=== PATIENT | female | born 1945 ===

== ENCOUNTER 2019-03-20 10:37 | Inpatient (IN) | payer MEDICARE ==
[2019-03-20] MEDS: OXYCODONE HCL/APAP 5MG/325MG TABLET PO PRN ×2 (15:06→20:46)
[2019-03-20] MEDS: DULOXETINE HCL 30 MG CAPSULE.DR PO SCH (21:20)
[2019-03-20] MEDS: CELECOXIB 100 MG CAPSULE PO SCH (21:21)
[2019-03-20] MEDS: RIVAROXABAN 20 MG TABLET PO SCH (21:21)
[2019-03-20] MEDS: CARVEDILOL 12.5 MG TABLET PO SCH (21:21)
[2019-03-21] MEDS: OXYCODONE HCL/APAP 5MG/325MG TABLET PO PRN ×3 (05:05→20:33)
--- NOTE | 2019-03-21 08:34 | History & Physical ---
History of Present Illness - Date Date of Service for History & Physical: 03/20/19 - History of Present Illness Admitting Diagnosis: Multiple rehab services post bilateral TKAs History of Present Illness: 74 yo female with bilateral total knee replacements completed at [facility]. Pt requested bilateral replacements and was denied by first ortho but was accepted by Dr Cheema and had both knees completed 03/17/19. PMH [place], Afib, HTN, OA, and depression. 03/20/19 -Pt in no distress, reports adequate pain control. Will continue percocet 5/325mg 1-2 q 6 hrs with ultram PRN for breakthrough pain. Home meds continued. PT/OT ordered and will eval pt for POC. Pt arrived with bilateral ice cooler pack and tolerating well. Pt in no acute distress, lungs CTA, heart rate irreg but normal rate. Pulses +2 PT and DP, +1 pitting edema. JEFFERSON hose to mid thigh both legs. Surgical dressings C/D/I, scant amt of bleed through noted. Pt has decreased ROM but able to move both legs with minimal assistance. Pt POC is to complete PT [facility] and then d/c to [facility] for a few weeks post op. PCP Surgeon Deni KOTHARI General - Cognitive Patterns Speech: Normal Thought Process: Intact Thought Content: Normal Orientation: Oriented x3 Brief Interview for Mental Status Score: 15 - Communication Preferred Language?: [place] [employer] Required: No Level of Education: High School Preferred Method of Learning: Seeing, Doing Comprehension Ability: No Impairment Able to Read: Yes Able to Write: Yes Select best description of speech pattern: Clear Speech Ability to express ideas and wants: Understood Understanding verbal content: Understands - Mood and Behavior Patterns Appearance: Well Groomed Mood: Normal Attitude: Cooperative Motor Activity: Calm Affect: Appropriate Hallucinations: Denies - Patient Health Questionnaire (PHQ-9) Little interest or pleasure in doing things frequency: Never or 1 day Feeling down, depressed, or hopeless frequency: Never or 1 day Trouble falling/staying asleep or sleeping to much frequency: Never or 1 day Feeling tired or having little energy frequency: Never or 1 day Poor appetite or overeating frequency: 12-14 days Feeling bad about yourself frequency: Never or 1 day Trouble concentrating on things frequency: Never or 1 day Moving/Speaking slowly or fidgety/restless frequency: Never or 1 day Thoughts that you would be better off frequency: Never or 1 day Affect of above symptoms on daily life: Not difficult at all - Psychosocial Well-Being Usual Living Arrangement: Alone Current and Past Employment History: Retired Employment History Comment: 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 Jew: Islam Jew Comment: would like communion if possible Verbalizes Interest in Activities During Stay: No Personality: Introverted States they do not want to participate in group activities: No Patient Involved in the Community: Yes Patient Drives: Yes Patients Leisure Activities Prior to Admission: likes to do crafts, sewing, play cards, biking, likes to watch the [employer] channel, travel Plans to Return to the Following Leisure Activities: see above-would like to get back to being active - Physical Functioning Activity Level: Up with assist x1 Turning: Self ad diana ROM Ability: Moves all extremities Assistive Devices: Straight Cane, Walker Ambulation Ability: Independent Bed Mobility: Needs Assist Transfer Ability: Needs Assist Bathing Ability: Independent Personal Hygiene: Needs Assist Dressing Ability: Independent Eating (Feeding) Ability: Independent Toileting Ability: Independent Administer Own Medication: Independent - Continence Bowel Pattern: Constipated Bladder Pattern: Normal - Dental Status Unable to examine: No Broken or loosely fitting full or partial dentures: No No natural teeth or tooth fragment(s) (edentulous): No Abnormal mouth tissue (ulcers, masses, oral lesions, etc.): No Obvious or likely cavity or broken natural teeth: No Inflamed or bleeding gums or loose natural teeth: No Mouth/facial pain, discomfort or difficulty chewing: No - Nutrition Screening Poor oral intake > 1 week: No Unplanned weight loss in specified time frame: No Nutrition Support via tube feedings or parenteral nutrition: No Pressure Ulcer: No Significantly underweight define as BMI <18.5 kg/m2: No Albumin <2.5mg/dL: No Persistent nausea/vomiting/diarrhea >3 days: No Difficulty chewing/swallowing/mouth sores: No Admitting Diagnosis: No Nutrition Risk Score: Low Risk Review of Systems Constitutional: Reports: Weakness. Denies: Chills, Fever Eyes: Denies: Eye discharge ENT: Denies: Congestion Cardiovascular: Reports: Arrhythmia (chronic). Denies: Dyspnea on exertion Endocrine: Denies: Fatigue Gastrointestinal: Reports: Constipation (chronic issue). Denies: Abdominal pain Musculoskeletal: Reports: Joint swelling Skin: Denies: Bruising Neurological: Reports: Abnormal gait Psychiatric: Denies: Anxiety Past Medical History - SOCIAL HISTORY Smoking Status: Former smoker Alcohol Use: None Drug use: None - SURGICAL HISTORY Past Surgical History: card. cath, pacemaker, [place], hyst, stress tests - RESPIRATORY Hx Respiratory Disorders: Yes Hx Sleep Apnea: Yes Hx of CPAP: Yes - CARDIOVASCULAR Hx Cardio Disorders: Yes Hx Abnormal EKG: Yes Hx Cardiac Cath: Yes Hx Chest Pain: Yes Hx Heart Attack: Yes Hx Hypertension: Yes Hx Irregular Heartbeat: Yes Hx Pacemaker/Defib: Yes - NEURO Hx Seizures: No - Hx Genitourinary Disorders: No - ENDOCRINE Hx Endocrine Disorders: No - MUSCULOSKELETAL Hx Musculoskeletal Disorders: Yes Hx Arthritis: Yes Comment:: cervical herniated disc - PSYCH Hx Psych Problems: Yes Hx Anxiety: Yes - HEMATOLOGY/ONCOLOGY Hx Hematology/Oncology Disorders: No Family Medical History Any Significant Family History?: Yes H&P Meds/Allergies - Allergies Allergies: Allergies Allergy/AdvReac Type Severity Reaction Status Date / Time acetaminophen [From [place]] Allergy HYPERSENSIT Verified 03/20/19 14:07 IVITY hydrocodone [From [place]] Allergy HYPERSENSIT Verified 03/20/19 14:07 IVITY morphine Allergy HEADACHE Verified 03/20/19 14:07 - Active Medications Active Medications: Current Medications Carvedilol (Coreg) 12.5 mg PO BID [facility] Last Admin: 03/20/19 21:21 Dose: 12.5 mg Documented by: Celecoxib (Celebrex) 200 mg PO BID [facility] Last Admin: 03/20/19 21:21 Dose: 200 mg Documented by: Duloxetine HCl (Cymbalta) 30 mg PO QHS [facility] Last Admin: 03/20/19 21:20 Dose: 30 mg Documented by: Lisinopril (Zestril) 5 mg PO DAILY [facility] Multivitamins/Minerals (Centrum) 1 tab PO DAILY [facility] Oxycodone/Acetaminophen (Percocet 5-325 Mg Tablet) 1 udtab PO Q6H PRN PRN Reason: PAIN - MODERATE (5-7) Oxycodone/Acetaminophen (Percocet 5-325 Mg Tablet) 2 udtab PO Q6H PRN PRN Reason: PAIN - SEVERE (8-10) Last Admin: 03/21/19 05:05 Dose: 2 udtab Documented by: Rivaroxaban (Xarelto) 20 mg PO QHS [facility] Last Admin: 03/20/19 21:21 Dose: 20 mg Documented by: Tramadol HCl (Ultram) 50 mg PO Q6H PRN PRN Reason: PAIN - MOD TO SEVERE (5-10) Vitamin D (Vitamin D3) 5,000 unit PO DAILY [facility] Physical Exam - Vital Signs Vital Signs: Vital Signs - Last 24 Hrs Temp Pulse Resp BP Pulse Ox 03/21/19 07:22 98.0 F 79 18 124/62 93 L 03/20/19 20:00 97.7 F 73 18 115/56 99 03/20/19 11:48 97.8 F 68 20 99/57 93 L - General General Appearance: Alert, Oriented x3, Cooperative, No acute distress - Head Head exam: Atraumatic - Eye Eye exam: Normal appearance, PERRL, Conjunctival injection - ENT ENT exam: Normal exam Nasal Exam: Normal inspection Mouth exam: Normal external inspection - Neck Neck exam: Normal inspection, Full ROM - Respiratory Respiratory exam: Normal lung sounds bilaterally - Cardiovascular Cardiovascular Exam: Regular rate, Normal heart sounds, Irregular rhythm Peripheral Pulses: 3+: Radial (R), Radial (L), Dorsalis Pedis (R), Dorsalis Pedis (L) - GI/Abdominal GI/Abdominal exam: Soft, Normal bowel sounds - Rectal Rectal exam: Deferred - exam: Deferred - Extremities Extremities exam: Joint swelling, Normal capillary refill, Pedal edema (+1 pitting edema), Tenderness (juan knees). negative: Calf tenderness, Full ROM - Back Back exam: Reports: Normal inspection - Neurological Neurological exam: Abnormal gait (juan TKA), Alert, CN II-XII intact, Oriented X3 - Psychiatric Psychiatric exam: Normal affect, Normal mood - Skin Skin exam: Dry, Warm, Other (surgical dressings intact, scant amt bleed through noted, no surrounding erythema or bruising noted) Discharge Potential - Discharge Needs Community Services Used Prior to Admission: None Patient Discharge Plan Description: Return Home Community Services Needed at Discharge: Physical Therapy Discharge Needs Comment: plan for outpatient PT at [facility] Plan - Swing Bed Certification Initial Certification Due: 03/20/19 14 Day Re-Cert Due: 04/03/19 44 Day Re-Cert Due: 05/03/19 74 Day Re-Cert Due: 06/02/19 - Detailed Diagnosis and Plan (1) Total knee replacement status Current Visit: Yes Status: Acute Base Code: Z96.659 - PRESENCE OF UNSPECIFIED ARTIFICIAL KNEE JOINT Comment: 03/20/19 -juan surgical dressings C/D/I -scant amt of bleed through noted -pt to see surgeon in 2 weeks, nursing to identify dressing change orders (2) Physical deconditioning Current Visit: Yes Status: Acute Base Code: R53.81 - OTHER MALAISE Comment: 03/20/19 -PT/OT eval ordered -pt has pain medication and ice pack to assist with pain control to complete thearpy (3) Chronic a-fib Current Visit: Yes Status: Acute Base Code: I48.20 - CHRONIC ATRIAL FIBRILLATION, UNSPECIFIED Comment: 03/20/19 -Xerlato 20mg daily, no BB noted, on coreg and lisinopril only -Hr noted to be 70-80s with Vitals, continue to monitor (4) Full code status Current Visit: Yes Status: Acute Base Code: Z78.9 - OTHER SPECIFIED HEALTH STATUS Comment: 03/20/19 -full code status (5) DVT prophylaxis Current Visit: Yes Status: Acute Base Code: Z29.9 - ENCOUNTER FOR PROPHYLACTIC MEASURES, UNSPECIFIED Comment: 03/20/19 -pt has chronic afib, on Xeralto 20mg daily, continue this no lovonex needed
[2019-03-21] MEDS ORDERED: AMLODIPINE BESYLATE 5MG TAB PO SCH (10:00)
[2019-03-21] MEDS: CELECOXIB 100 MG CAPSULE PO SCH ×2 (10:06→21:06)
[2019-03-21] MEDS: CHOLECALCIFEROL 1,000 UNIT TABLET PO SCH (10:06)
[2019-03-21] MEDS: MULTIVITAMINS/MINERALS TABLET PO SCH (10:06)
[2019-03-21] MEDS: LISINOPRIL 5 MG TABLET PO SCH (10:06)
[2019-03-21] MEDS: CARVEDILOL 12.5 MG TABLET PO SCH ×2 (10:06→21:06)
[2019-03-21] MEDS: TRAMADOL HCL 50 MG TABLET PO PRN ×2 (10:06→17:45)
--- NOTE | 2019-03-21 11:12 | Rehab Evaluation ---
Patient Information - Patient Information Diagnosis: multiple rehab services due to s/p matthew TKAs Ordered Treatment: OT Evaluate and Treat Status: Initial Evaluation Surgery: Yes (matthew TKA ) Date of Surgery: 03/17/19 Past Medical/Surgical Hx: PAST MEDICAL/SURGICAL HISTORY Past Surgical History card. cath, pacemaker, [place], hyst, stress tests PMH - Respiratory Hx Respiratory Disorders Yes Hx Sleep Apnea Yes Hx of CPAP Yes PMH - Cardiovascular Hx Cardiovascular Disorders Yes Hx Abnormal EKG Yes Hx Cardiac Catheterization Yes Hx Chest Pain Yes Hx Heart Attack Yes Hx Hypertension Yes Hx Irregular Heartbeat Yes Hx Pacemaker/Defibrillator Yes PMH - Neuro Hx Neurological Disorders No Hx Seizures No PMH - Hx Genitourinary Disorders No PMH - Endocrine Hx Endocrine Disorders No PMH - Musculoskeletal Hx Musculoskeletal Disorders Yes Hx Arthritis Yes Comment: cervical herniated disc PMH - Psych Hx Psychiatric Problems Yes Hx Anxiety Yes PMH - Hematology/Oncology Hx Hematology/Oncology No Disorders Premorbid Status: Detail (Pt lives alone in a modular home with 4 steps and matthew railings at the entrance. She has a walk in shower with a shower seat and a standard height toilet with a riser. There are no grab bars in the shower or near the toilet. She has a straight cane that she uses when outside as well as a tripod cane. She is Ind with all home mgmt, meal prep and laundry tasks.) Social History: Detail (Pt reports having supportive sisters.) Precautions: [place], Fall - Time With Patient Total Time Spent With Patient (Min): 35 Treatment Procedures: Detail (OT eval low complexity) Subjective Information - Subjective Information Per Patient Objective Data - Pain Pain Present: Yes (12/25) - Mental Status Patient Orientation: Oriented x3 - Visual Perception Appears within normal limits for therapeutic activities - ROM Within normal limits (Matthew UE AROM WNL) - Strength/Tone Within normal limits (Matthew UE strength 4+/5) - Coordination Appears within normal limits for therapeutic activities - Bed Mobility Independent (Ind with supine to sit) - Transfers Independent (Ind with sit to stand from raised EOB with mod difficulty) - Balance Balance Sitting: Good Balance Standing: Good - Sensation Intact - Gait Detail (Pt ambulating short distances with 2 wheeled walker.) - ADL's/IADL's Detail (Pt able to demonstrate doffing of slipper socks and donning of slip on shoes. She has not attempted other self cares since surgery.) Therapy Assessment - Therapy Assessment Detail (Pt presents with significant knee pain which is limiting her Ind with self cares and tolerance for mobility needed for IADLs. Pt was very easily fatigued with evaluation.) Problem List - Problem List Occupational Therapy Problem List: Detail (1. Decreased Ind with showering. 2. Decreased Ind with functional mobility needed for IADLs. 3. Decreased Ind with IADLs including meal prep.) Goals - Goals Occupational Therapy Goals: 1. Pt will be Ind with showering and total body dressing. 2. Pt will be Ind with functional mobility and demonstrate improved endurance needed for safe IADLs. 3. Pt will be safe and Ind with light meal prep task using walker. Prognosis - Prognosis Good Plan - Plan Occupational Therapy Plan: OT 2-4 times per week to address goals and problem list as above.
--- NOTE | 2019-03-21 12:47 | Rehab Evaluation ---
Patient Information - Patient Information Diagnosis: multiple rehab services due to s/p juan TKAs Ordered Treatment: PT Evaluate and Treat Status: Initial Evaluation Surgery: Yes (juan TKA ) Date of Surgery: 03/17/19 History: Detail (Patient was admitted as a patient to a swing bed on 03/20/19 following B TKAs.) Past Medical/Surgical Hx: PAST MEDICAL/SURGICAL HISTORY Past Surgical History card. cath, pacemaker, [place], hyst, stress tests PMH - Respiratory Hx Respiratory Disorders Yes Hx Sleep Apnea Yes Hx of CPAP Yes PMH - Cardiovascular Hx Cardiovascular Disorders Yes Hx Abnormal EKG Yes Hx Cardiac Catheterization Yes Hx Chest Pain Yes Hx Heart Attack Yes Hx Hypertension Yes Hx Irregular Heartbeat Yes Hx Pacemaker/Defibrillator Yes PMH - Neuro Hx Neurological Disorders No Hx Seizures No PMH - Hx Genitourinary Disorders No PMH - Endocrine Hx Endocrine Disorders No PMH - Musculoskeletal Hx Musculoskeletal Disorders Yes Hx Arthritis Yes Comment: cervical herniated disc PMH - Psych Hx Psychiatric Problems Yes Hx Anxiety Yes PMH - Hematology/Oncology Hx Hematology/Oncology No Disorders Premorbid Status: Detail (Pt lives alone in a modular home with 4 steps and juan railings at the entrance. She has a walk in shower with a shower seat and a standard height toilet with a riser. There are no grab bars in the shower or near the toilet. She has a straight cane that she uses when around her home as well as a tripod cane. She is Ind with all home mgmt, meal prep and laundry tasks.) Social History: Detail (Pt reports having supportive sisters. She stated that she used the straight cane prior to surgery around her home for ambulation. She did some driving and was able to walk some community distances prior to her surgery.) Precautions: [place], Fall - Time With Patient Total Time Spent With Patient (Min): 30 Treatment Procedures: Detail (Initial evaluation; low complexity Patient was left in bed with her call light and bedside table within reach. The nursing staff was notified of her position.) Subjective Information - Subjective Information Per Patient (Patient reported 7/10 pain in both of her knees, but stated that the L was worse than the R. She reports that her goals are to be able to walk around the community again and to ride her bike.) Objective Data - Pain Pain Present: Yes Pain Scale Used: Numeric (1 - 10) (7/10 in both knees) - Mental Status Patient Orientation: Oriented x3 (Patient was able to identify herself, birthdate, age, location, month, and current president.) - Visual Perception Appears within normal limits for therapeutic activities - ROM Not within normal limits (Pt's hip and ankle ROM is within normal limits bilaterally for functional activities. AROM for R knee flexion 60 and L knee flexion 60, AROM for R knee extension -10 and L knee extension -12) - Strength/Tone Not within normal limits (Hip flexion 3+/5 bilaterally, Hip abduction 3+/5 bilaterally, hip adduction 4/5 bilaterally, ankle dorsiflexion 5/5 bilaterally, knee flexion 3+/5 bilaterally, knee extension 3-/5 bilaterally) - Bed Mobility Independent (Patient was independent in moving from supine to sit and sit to supine and moving up and down in bed.) - Transfers Independent (Patient was independent in moving from sit to stand and stand to sit. In moving to the edge of the bed the patient was independent. Moving from the edge of the bed back into the bed, the patient required assistance of 1 to move both of her legs back into bed.) - Balance Balance Sitting: Good Balance Standing: Fair (Patient's balance limited per surgical procedure. Patient required use of walker for stability during ambulation.) - Sensation Intact - Gait Detail (Patient ambulated 60 feet over smooth surfaces with a front-wheeled walker with contact guard. Patient lacks full knee ROM during gait. Step length decreased bilaterally and gait speed decreased. At the end of ambulation, patient stated that she was buckling in her right knee.) Therapy Assessment - Therapy Assessment Detail (Patient presents with pain, decreased ROM and strength, and gait abnormalities that make her a good candidate for physical therapy services. She lives alone and was independent in ADLs prior to surgery and therapy services will help her return to her prior level of function so that she can return home independently.) Problem List - Problem List Physical Therapy Problem List: Detail (1. Decreased ROM bilaterally 2. Decreased strength bilaterally 3. Pain 4. Gait abnormalities 5. Decreased tolerance for stairs) Occupational Therapy Problem List: Detail (1. Decreased Ind with showering. 2. Decreased Ind with functional mobility needed for IADLs. 3. Decreased Ind with IADLs including meal prep.) Goals - Goals Physical Therapy Goals: 1. Patient will be independent and demonstrate correct form of all exercises in her HEP to help increase strength and ROM. 2. Patient will be able to ambulate household distances independently with an AD to be able to get around her home to perform ADLs. 3. Patient will be able to ascend and descend 4 stairs safely and with correct form to get in and out of her home. Occupational Therapy Goals: 1. Pt will be Ind with showering and total body dressing. 2. Pt will be Ind with functional mobility and demonstrate improved endurance needed for safe IADLs. 3. Pt will be safe and Ind with light meal prep task using walker. Prognosis - Prognosis Good Plan - Plan Physical Therapy Plan: Patient will be seen 1-2x per day, M-F for therapeutic exercise, therapeutic activities, gait training, stair training, neuromuscular re-education, and HEP instruction. Occupational Therapy Plan: OT 2-4 times per week to address goals and problem list as above.
--- NOTE | 2019-03-21 14:42 | Physical Therapy Tx Note ---
Physical Therapy Tx Note - Treatment Note Tolerated: Good Total Time Spent With Patient: 30 Physical Therapy Tx Note: Detail (The patient was in bed when PT arrived. The patient declined to go to PT dept. and requested to complete exercises in her room.The patient completed the following TKA exercises: seated heel slides, ankle pumps, SAQ, quad sets, gluteal sets, hamstring sets, SLR and R SLR using a strap. all x 5-10 reps. The patient was given written instructions for HEP and completed them independent. The patient was independent with supine to and from sit transfer and ambulated to and from bathroom with front wheeled walker with supervision for safety. Nursing staff was notified and is to ambulate with patient this weekend. Patient is to complete HEP Independently.) Physical Therapy Problem List: Detail (1. Decreased ROM bilaterally 2. Decreased strength bilaterally 3. Pain 4. Gait abnormalities 5. Decreased tolerance for stairs) Physical Therapy Goals: 1. Patient will be independent and demonstrate correct form of all exercises in her HEP to help increase strength and ROM. (Goal Met). 2. Patient will be able to ambulate household distances independently with an AD to be able to get around her home to perform ADLs. 3. Patient will be able to ascend and descend 4 stairs safely and with correct form to get in and out of her home. Physical Therapy Plan: Patient will be seen 1-2x per day, M-F for therapeutic exercise, therapeutic activities, gait training, stair training, neuromuscular re-education, and HEP instruction.
[2019-03-21] MEDS: MAGNESIUM HYDROXIDE 30 ML UDC PO PRN (18:10)
[2019-03-21] MEDS: RIVAROXABAN 20 MG TABLET PO SCH (21:06)
[2019-03-21] MEDS: DULOXETINE HCL 30 MG CAPSULE.DR PO SCH (21:06)
[2019-03-22] MEDS: TRAMADOL HCL 50 MG TABLET PO PRN ×3 (00:09→21:20)
[2019-03-22] MEDS: OXYCODONE HCL/APAP 5MG/325MG TABLET PO PRN ×4 (02:18→23:10)
[2019-03-22] MEDS: CELECOXIB 100 MG CAPSULE PO SCH ×2 (09:00→21:21)
[2019-03-22] MEDS: MULTIVITAMINS/MINERALS TABLET PO SCH (09:01)
[2019-03-22] MEDS: CARVEDILOL 12.5 MG TABLET PO SCH ×2 (09:01→21:20)
[2019-03-22] MEDS: CHOLECALCIFEROL 1,000 UNIT TABLET PO SCH (09:02)
[2019-03-22] MEDS: LISINOPRIL 5 MG TABLET PO SCH (09:03)
[2019-03-22] MEDS: DULOXETINE HCL 30 MG CAPSULE.DR PO SCH (21:20)
[2019-03-22] MEDS: RIVAROXABAN 20 MG TABLET PO SCH (21:20)
[2019-03-22] MEDS ORDERED: HYDROMORPHONE HCL 2 MG/ML VIAL IM ONE (21:57)
[2019-03-23] MEDS: OXYCODONE HCL/APAP 5MG/325MG TABLET PO PRN ×4 (05:25→23:45)
[2019-03-23] MEDS: TRAMADOL HCL 50 MG TABLET PO PRN ×3 (08:27→20:33)
[2019-03-23] MEDS: CELECOXIB 100 MG CAPSULE PO SCH ×2 (09:33→22:09)
[2019-03-23] MEDS: MULTIVITAMINS/MINERALS TABLET PO SCH (09:33)
[2019-03-23] MEDS: CHOLECALCIFEROL 1,000 UNIT TABLET PO SCH (09:34)
[2019-03-23] MEDS: LISINOPRIL 5 MG TABLET PO SCH (09:34)
[2019-03-23] MEDS: CARVEDILOL 12.5 MG TABLET PO SCH ×2 (09:34→22:08)
[2019-03-23] MEDS ORDERED: ZINC OXIDE 28.35 GM TUBE TOP ONE (15:40)
[2019-03-23] MEDS ORDERED: ZINC OXIDE 28.35 GM TUBE TOP PRN (16:20)
[2019-03-23] MEDS: DULOXETINE HCL 30 MG CAPSULE.DR PO SCH (22:09)
[2019-03-23] MEDS: RIVAROXABAN 20 MG TABLET PO SCH (22:09)
[2019-03-23] MEDS: MAGNESIUM HYDROXIDE 30 ML UDC PO PRN (22:11)
[2019-03-24] MEDS: TRAMADOL HCL 50 MG TABLET PO PRN ×2 (05:06→19:19)
[2019-03-24] MEDS: OXYCODONE HCL/APAP 5MG/325MG TABLET PO PRN ×3 (06:45→17:09)
[2019-03-24] MEDS: LISINOPRIL 5 MG TABLET PO SCH (09:46)
[2019-03-24] MEDS: CELECOXIB 100 MG CAPSULE PO SCH ×2 (09:46→21:56)
[2019-03-24] MEDS: CARVEDILOL 12.5 MG TABLET PO SCH ×2 (09:46→21:56)
[2019-03-24] MEDS: MULTIVITAMINS/MINERALS TABLET PO SCH (09:47)
[2019-03-24] MEDS: CHOLECALCIFEROL 1,000 UNIT TABLET PO SCH (09:47)
--- NOTE | 2019-03-24 10:52 | Occupational Therapy Tx Note ---
Occupational Therapy Tx Note - Treatment Note Tolerated: Good Total Time Spent With Patient: 45 (ADL) Occupational Therapy Treatment Note: Detail (S: Pt resting in bed, agreeable to OT. O: Supine to sit Indly, sit to stand and amb to commode with 2 wheeled walker Indly. Pt doffed gown, slipper socks, underwear and bra Indly. She doffed eloisa socks with assist to truss puller helper heels. Pt amb to shower and completed total body showering in sitting and standing using grab bar and hand held shower Indly. Pt required verbal cues to use grab bar at times. Pt dried self Indly. Pt donned bra, dress, underwear and slip on shoes Indly. Pt amb to sink and completed brushing hair Indly. Pt amb to recliner and she was left with cold packs in place on juan knees. A: Ind with showering in sitting and standing. Ind with total body dressing with assist for eloisa socks only. Ind with bed mobility and transfers using grab bar) Occupational Therapy Problem List: Detail (1. Decreased Ind with showering. 2. Decreased Ind with functional mobility needed for IADLs. 3. Decreased Ind with IADLs including meal prep.) Occupational Therapy Goals: 1. Pt will be Ind with showering and total body dressing. 2. Pt will be Ind with functional mobility and demonstrate improved endurance needed for safe IADLs. 3. Pt will be safe and Ind with light meal prep task using walker. Prognosis: Good Occupational Therapy Plan: OT 2-4 times per week to address goals and problem list as above.
--- NOTE | 2019-03-24 16:23 | Physical Therapy Tx Note ---
Physical Therapy Tx Note - Treatment Note Tolerated: Good Total Time Spent With Patient: 30 Physical Therapy Tx Note: Detail (The patient ambulated with front wheeled walker a distance of 50 feet x 1 with supervision for safety. The patient was taken to Rehab department and completed the following TKA exercises bilaterally: supine heel slides with a ball, SAQ (all 2 sets of 10), quad sets, hamstring sets x 10 reps, SLR 3 reps, heel slides x 2 sets of 5 reps. The patient was returned to room and ambulated to bathroom. The patient returned to bed and ice pack was placed on pt's knee and call light was within reach.) Physical Therapy Problem List: Detail (1. Decreased ROM bilaterally 2. Decreased strength bilaterally 3. Pain 4. Gait abnormalities 5. Decreased tolerance for stairs) Physical Therapy Goals: 1. Patient will be independent and demonstrate correct form of all exercises in her HEP to help increase strength and ROM. (Goal Met). 2. Patient will be able to ambulate household distances independently with an AD to be able to get around her home to perform ADLs. 3. Patient will be able to ascend and descend 4 stairs safely and with correct form to get in and out of her home. Physical Therapy Plan: Patient will be seen 1-2x per day, M-F for therapeutic exercise, therapeutic activities, gait training, stair training, neuromuscular re-education, and HEP instruction.
[2019-03-24] MEDS: RIVAROXABAN 20 MG TABLET PO SCH (21:56)
[2019-03-24] MEDS: DULOXETINE HCL 30 MG CAPSULE.DR PO SCH (21:56)
[2019-03-25] MEDS: OXYCODONE HCL/APAP 5MG/325MG TABLET PO PRN ×3 (08:36→21:18)
--- NOTE | 2019-03-25 10:04 | Physical Therapy Tx Note ---
Physical Therapy Tx Note - Treatment Note Total Time Spent With Patient: 30 Physical Therapy Tx Note: Detail (Patient stated that she had pain in both knees today. Stair training was performed and patient was able to ascend and descend 4 stairs with correct form. She stated that it was a little painful to go up and down the stairs, especially the stairs that were standard height. She is going to go home to her sister's house after discharge, and stated that there will only be 1 stair she has to go up to get into the house. She ambulated 50 feet with the front-wheeled walker independently. Patient performed heel slides, quad sets, hamstring sets, and short arc quads x10 bilaterally. She performed straight leg raises x5 bilaterally. Patient has been able to lift her leg higher with this exercise for more repetitions. Patient was left in bed with her call light and bedside table within reach. The nursing staff was notified of her position.) Physical Therapy Problem List: Detail (1. Decreased ROM bilaterally 2. Decreased strength bilaterally 3. Pain 4. Gait abnormalities 5. Decreased tolerance for stairs) Physical Therapy Goals: 1. Patient will be independent and demonstrate correct form of all exercises in her HEP to help increase strength and ROM. (Goal Met). 2. Patient will be able to ambulate household distances independently with an AD to be able to get around her home to perform ADLs. 3. Patient will be able to ascend and descend 4 stairs safely and with correct form to get in and out of her home. Physical Therapy Plan: Patient will be seen 1-2x per day, M-F for therapeutic exercise, therapeutic activities, gait training, stair training, neuromuscular re-education, and HEP instruction.
[2019-03-25] MEDS: MULTIVITAMINS/MINERALS TABLET PO SCH (10:12)
[2019-03-25] MEDS: CHOLECALCIFEROL 1,000 UNIT TABLET PO SCH (10:12)
[2019-03-25] MEDS: CELECOXIB 100 MG CAPSULE PO SCH ×2 (10:12→21:18)
[2019-03-25] MEDS: CARVEDILOL 12.5 MG TABLET PO SCH ×2 (10:12→21:18)
[2019-03-25] MEDS: LISINOPRIL 5 MG TABLET PO SCH (10:12)
[2019-03-25] MEDS: MAGNESIUM HYDROXIDE 30 ML UDC PO PRN (10:55)
[2019-03-25] MEDS: TRAMADOL HCL 50 MG TABLET PO PRN ×2 (10:55→19:06)
--- NOTE | 2019-03-25 14:11 | Occupational Therapy Tx Note ---
Occupational Therapy Tx Note - Treatment Note Tolerated: Good Total Time Spent With Patient: 25 (ADL) Occupational Therapy Treatment Note: Detail (S: Pt up in recliner, feeling stronger. O: Sit to stand and amb to bathroom with 2 wheeled walker Ind. Pt completed toileting Indly. Pt amb 15 feet to wheelchair and transported to rehab kitchen. Pt educated and provided written hand outs re: kitchen safety and modifications, laundry, house work and adaptive equipment. Pt reports she has a service worker helper and already has her kitchen set up for easy access. Pt was able to demonstrate mobility in kitchen using walker including activity at sink, refrigerator, stove, oven and upper/lower cupboards. Pt reports she has a 4 wheeled walker with a seat that she can use to transport items if needed and she will have a walker bag. Pt plans to stay with her sister temporarily after discharge. Pt transported back to her room via wheelchair and she ambulated to recliner with walker Indly. A: Pt Ind with kitchen safety and activities. She is feeling much more confident with ADL/IADL and mobility tasks. Will assess donning/doffing of eloisa hose at next visit) Occupational Therapy Problem List: Detail (1. Decreased Ind with showering. 2. Decreased Ind with functional mobility needed for IADLs. 3. Decreased Ind with IADLs including meal prep.) Occupational Therapy Goals: 1. Pt will be Ind with showering and total body dressing. 2. Pt will be Ind with functional mobility and demonstrate improved endurance needed for safe IADLs. 3. Pt will be safe and Ind with light meal prep task using walker. Prognosis: Good Occupational Therapy Plan: OT 2-4 times per week to address goals and problem list as above.
[2019-03-25] MEDS: DULOXETINE HCL 30 MG CAPSULE.DR PO SCH (21:18)
[2019-03-25] MEDS: RIVAROXABAN 20 MG TABLET PO SCH (21:18)
[2019-03-25] MEDS: SENNOSIDES/DOCUSATE SODIUM UD CAPSULE PO PRN (21:20)
[2019-03-26] MEDS: OXYCODONE HCL/APAP 5MG/325MG TABLET PO PRN ×3 (03:42→21:06)
[2019-03-26] MEDS: LISINOPRIL 5 MG TABLET PO SCH (09:36)
[2019-03-26] MEDS: CHOLECALCIFEROL 1,000 UNIT TABLET PO SCH (09:36)
[2019-03-26] MEDS: MULTIVITAMINS/MINERALS TABLET PO SCH (09:36)
[2019-03-26] MEDS: CELECOXIB 100 MG CAPSULE PO SCH ×2 (09:36→21:05)
[2019-03-26] MEDS: TRAMADOL HCL 50 MG TABLET PO PRN ×2 (09:37→14:46)
[2019-03-26] MEDS: CARVEDILOL 12.5 MG TABLET PO SCH ×2 (09:37→21:06)
--- NOTE | 2019-03-26 10:51 | Discharge Summary ---
Providers Discharge Summary Date: 03/27/19 Date of admission: 03/20/19 12:04 Attending physician: ROME HENDERSON Physical Exam - Vital Signs Vital Signs: Vital Signs - Last 24 Hrs Temp Pulse Resp BP BP BP Pulse Ox 03/26/19 09:40 97.7 F 164/70 03/26/19 08:00 97.7 F 74 16 164/70 96 03/25/19 20:00 97.7 F 18 159/66 95 - General General Appearance: Alert, Oriented x3, Cooperative, No acute distress - Head Head exam: Atraumatic - Eye Eye exam: Normal appearance, PERRL - ENT ENT exam: Normal exam Nasal Exam: Normal inspection Mouth exam: Normal external inspection - Neck Neck exam: Normal inspection, Full ROM - Respiratory Respiratory exam: Normal lung sounds bilaterally - Cardiovascular Cardiovascular Exam: Regular rate, Normal heart sounds, Irregular rhythm Peripheral Pulses: 3+: Radial (R), Radial (L), Dorsalis Pedis (R), Dorsalis Pedis (L) - GI/Abdominal GI/Abdominal exam: Soft, Normal bowel sounds - Rectal Rectal exam: Deferred - exam: Deferred - Extremities Extremities exam: Joint swelling, Normal capillary refill, Tenderness (juan knees). negative: Calf tenderness, Full ROM - Back Back exam: Reports: Normal inspection - Neurological Neurological exam: Abnormal gait (juan TKA), Alert, CN II-XII intact, Oriented X3 - Psychiatric Psychiatric exam: Normal affect, Normal mood - Skin Skin exam: Dry, Warm, Other (surgical dressings intact, scant amt bleed through noted, no surrounding erythema or bruising noted) Hospitalization - Hospitalization Admission Diagnosis: Multiple rehab services post bilateral TKAs - Problem List/Discharge Diagnosis (1) Physical deconditioning Current Visit: Yes Status: Acute Base Code: R53.81 - OTHER MALAISE Comment: 03/27/19 -Worked with PT/OT during [facility] stay -Ultram and Percocet effective with pain control -Will discharge home with walker, which has been ordered (2) Total knee replacement status Current Visit: Yes Status: Acute Base Code: Z96.659 - PRESENCE OF UNSPECIFIED ARTIFICIAL KNEE JOINT Comment: 03/27/19 -juan surgical dressings C/D/I -F/u appointment with Dr. Arroyo (Ortho surgeon) on Sunday03/28/19 (3) Chronic a-fib Current Visit: Yes Status: Acute Base Code: I48.20 - CHRONIC ATRIAL FIBRILLATION, UNSPECIFIED Comment: 03/27/19 -Continue Xarelto (4) DVT prophylaxis Current Visit: Yes Status: Acute Base Code: Z29.9 - ENCOUNTER FOR PROPHYLACTIC MEASURES, UNSPECIFIED Comment: 03/27/19 -Continue home med Xarelto (for Chronic Afib) -No further anticoagulation required (5) Full code status Current Visit: Yes Status: Acute Base Code: Z78.9 - OTHER SPECIFIED HEALTH STATUS Comment: 03/27/19 -full code status - Hospitalization Course Disposition: Home, Self-Care Hospital Course: 74 yo female with bilateral total knee replacements completed at [facility]. Pt requested bilateral replacements and was denied by first ortho but was accepted by Dr Cheema and had both knees completed 03/17/19. PMH [place], Afib, HTN, OA, and depression. 03/20/19 -Pt in no distress, reports adequate pain control. Will continue percocet 5/325mg 1-2 q 6 hrs with ultram PRN for breakthrough pain. Home meds continued. PT/OT ordered and will eval pt for POC. Pt arrived with bilateral ice cooler pack and tolerating well. Pt in no acute distress, lungs CTA, heart rate irreg but normal rate. Pulses +2 PT and DP, +1 pitting edema. RIGO hose to mid thigh both legs. Surgical dressings C/D/I, scant amt of bleed through noted. Pt has decreased ROM but able to move both legs with minimal assistance. Pt POC is to complete PT [facility] and then d/c to [facility] house for a few weeks post op. PCP Surgeon Deni KOTHARI 03/27/19 Pt evaluated lying in bed, alert and watching tv. No distress noted. Worked with PT/OT during [facility] stay and is felt to be appropriate to discharge to her sister's home for a few weeks. Has f/u appointment with Dr. Cheema (Ortho Surgeon) on Sunday03/28/19. Reports that pain is well controlled on Ultram and Percocet. Requires walker at this time, which has been ordered and is to be delivered around noon. No s/sx of infection noted to surgical incisions, scant drainage noted. Rigo hose on. Condition at Discharge: (1) Good Discharge Medications - Discharge Medications Prescriptions: Oxycodone HCl/Acetaminophen [Percocet 5mg/325mg] 1 udtab PO Q6H PRN #30 tablet PRN Reason: Pain - Severe (8-10) Tramadol HCl [Ultram] 50 mg PO Q6H PRN #30 tablet PRN Reason: Pain - Mod To Severe (5-10) Home Medications: Ambulatory Orders Carvedilol [Coreg] 12.5 mg PO BID tablet 03/26/19 [Last Taken Unknown] Celecoxib [Celebrex] 200 mg PO BID cap 03/26/19 [Last Taken Unknown] Duloxetine HCl [Cymbalta] 30 mg PO QHS capsule. 03/26/19 [Last Taken Unknown] Lisinopril [Zestril] 5 mg PO DAILY tablet 03/26/19 [Last Taken Unknown] Multivitamin/Iron/Folic Acid [Centrum] 1 tab PO DAILY tablet 03/26/19 [Last Taken Unknown] Oxycodone HCl/Acetaminophen [Percocet 5mg/325mg] 1 udtab PO Q6H PRN #30 tablet 03/26/19 [Last Taken Unknown] Rivaroxaban [Xarelto] 20 mg PO QHS tab 03/26/19 [Last Taken Unknown] Sennosides/Docusate Sodium [Senna Plus] 1 each PO BID PRN capsule 03/26/19 [Last Taken Unknown] Tramadol HCl [Ultram] 50 mg PO Q6H PRN #30 tablet 03/26/19 [Last Taken Unknown] Discharge Plan - Discharge Instructions Activity at Discharge: As Per Physical Therapy Diet at Discharge: Advance to Usual Diet Wound Primary Dressing Type: As per Ortho Surgeon Additional Instructions: Continue alternating Percocet and Ultram. Take 1 Percocet with 1 Tylenol 325mg every 4-6 hours. Alternate with Ultram. Take a stool softener while taking Narcotics Follow up with Dr. Arroyo as scheduled Quality Measures - Quality Measures Quality Measures: Atrial Fibrillation & Atrial Flutter: Chronic Anticoagulation Therapy, Advance Directives, Documentation of Current Medications in Medical Record, Elder Maltreatment Screen and Follow-Up Plan, Screening for High Blood Pressure and F/U Documented - Current Medications Quality Measure: Measure #130: Documentation of Current Medications Documentation of Current Medications: <Current Medications Documented/Reviewed> [A2714] - Blood Pressure Screening Quality Measure: Screening for High Blood Pressure and Follow-Up Documented Does Patient Have Any of the Following: Active Dx of HTN Blood Pressure Classification: Hypertensive Reading Systolic Measurement: 164 Diastolic Measurement: 70 Screening for High Blood Pressure: Patient Exclusion, Hx of HTN [Q0564] - Atrial Fibrillation and Atrial Flutter Quality Measure: Atrial Fibrillation & Atrial Flutter: Chronic Anticoagulation Therapy Does Patient Have Any of the Following: No CHADS2 Risk Stratification: Hypertension Risk Stratification Summary: No risk factors or only one moderate risk factor exists. [M8970] Anticoagulation Therapy: Patient Not Eligible [W8970] (already on Xarelto) - Advance Directives Quality Measure: Measure #47: Care Plan Advance Directives Established: No Advance Directives Information Provided To Patient: No Advance Directives on File: No Living Will: No Power of Biological Sciences Professor: No Advance Care Planning: <Care Plan/Decision Maker Documented; Discussed & Documented> [3023F] - Elder Abuse Suspicion Index Screening: Elder Abuse Suspicion Index Screening Rely on people for bathing, dressing, shopping, banking, etc: No Prevented from getting food, clothes, medication, etc: No Made to feel shamed or threatened by someone: No Forced to sign papers or use money against will: No Feel afraid, touched in ways not wanted or hurt physically: No Poor eye contact, withdrawn, malnourished, cuts or bruises: No Screening Result: Negative result EASI Reference Information: Alma GROSSMAN, Jaida C, Mary D, Reji M.Development and validation of a tool to assist physicians identification of elder abuse: The Elder Abuse Suspicion Index (EASI ). Journal of Elder Abuse and Neglect, 2008; 20 (3): 276-300. - Elder Maltreatment Screen Quality Measures: Elder Maltreatment Screen and Follow-Up Plan Elder Maltreatment Screen: <Negative, No Follow-Up Plan Required> [W8090]
--- NOTE | 2019-03-26 11:18 | Occupational Therapy Tx Note ---
Occupational Therapy Tx Note - Treatment Note Tolerated: Good Total Time Spent With Patient: 15 (ADL) Occupational Therapy Treatment Note: Detail (S: Pt expressed concern over donning eloisa socks. O: Reviewed with pt and her sister techniques for doffing and donning eloisa socks. Pt was able to demonstrate doffing right eloisa sock Indly. After instruction pt was able to don right eloisa sock with plastic bag over foot and by turning sock partially inside out. Pt reports no other concerns with ADLs/IADLs after discharge. A: Pt is Ind with donning and doffing eloisa sock) Occupational Therapy Problem List: Detail (1. Decreased Ind with showering. 2. Decreased Ind with functional mobility needed for IADLs. 3. Decreased Ind with IADLs including meal prep.) Occupational Therapy Goals: 1. Pt will be Ind with showering and total body dressing. 2. Pt will be Ind with functional mobility and demonstrate improved endurance needed for safe IADLs. 3. Pt will be safe and Ind with light meal prep task using walker. Prognosis: Good Occupational Therapy Plan: OT 2-4 times per week to address goals and problem list as above.
--- NOTE | 2019-03-26 14:40 | Rehab Discharge Summary ---
Patient Information - Patient Information Diagnosis: multiple rehab services due to s/p juan TKAs Ordered Treatment: PT Evaluate and Treat Surgery: Yes (juan TKA ) Date of Surgery: 03/17/19 History: Detail (Patient was admitted as a patient to a swing bed on 03/20/19 following B TKAs.) Past Medical/Surgical Hx: PAST MEDICAL/SURGICAL HISTORY Past Surgical History card. cath, pacemaker, [place], hyst, stress tests PMH - Respiratory Hx Respiratory Disorders Yes Hx Sleep Apnea Yes Hx of CPAP Yes PMH - Cardiovascular Hx Cardiovascular Disorders Yes Hx Abnormal EKG Yes Hx Cardiac Catheterization Yes Hx Chest Pain Yes Hx Heart Attack Yes Hx Hypertension Yes Hx Irregular Heartbeat Yes Hx Pacemaker/Defibrillator Yes PMH - Neuro Hx Neurological Disorders No Hx Seizures No PMH - Hx Genitourinary Disorders No PMH - Endocrine Hx Endocrine Disorders No PMH - Musculoskeletal Hx Musculoskeletal Disorders Yes Hx Arthritis Yes Comment: cervical herniated disc PMH - Psych Hx Psychiatric Problems Yes Hx Anxiety Yes PMH - Hematology/Oncology Hx Hematology/Oncology No Disorders Premorbid Status: Detail (Pt lives alone in a modular home with 4 steps and juan railings at the entrance. She has a walk in shower with a shower seat and a standard height toilet with a riser. There are no grab bars in the shower or near the toilet. She has a straight cane that she uses when around her home as well as a tripod cane. She is Ind with all home mgmt, meal prep and laundry tasks.) Social History: Detail (Pt reports having supportive sisters. She stated that she used the straight cane prior to surgery around her home for ambulation. She did some driving and was able to walk some community distances prior to her surgery.) Precautions: [place], Fall Objective Data - Mental Status Patient Orientation: Oriented x3 - Visual Perception Appears within normal limits for therapeutic activities - ROM Not within normal limits (ROM without warmup: R knee flexion 65 degrees, L knee flexion 60 degrees, R knee extension -8 degrees, L knee extension -8 degrees; ROM following exercises with towel under feet: R knee flexion 72 degrees, L knee flexion 65 degrees) - Strength/Tone Not within normal limits (hip flexion 3+/5 bilaterally, hip abduction 4/5 bilaterally, hip adduction 4/5 bilaterally, ankle dorsiflexion 5/5 bilaterally, knee flexion 4/5 bilaterally, R knee extension 3/5, L knee extension 3+/5) - Coordination Appears within normal limits for therapeutic activities - Bed Mobility Independent (Patient is independent with all bed mobility tasks.) - Transfers Needs Assist (Patient is independent in moving from supine to sit, sit to stand, stand to sit, and sit to supine. Patient requires supervison for car transfer.) - Balance Balance Sitting: Good Balance Standing: Good - Sensation Intact - Gait Detail (Patient was able to ambulate 100 feet over smooth surfaces with a front- wheeled walker independently. Patient is ambulating at a quicker gait speed than at the initial evaluation. She has decreased step lengths bilaterally. Patient has increased knee ROM during gait since the initial evaluation and walks with a reciprocal gait pattern.) Therapy Assessment - Therapy Assessment Detail (The patient has met all inpatient therapy goals at this time. She has shown improvements in gait, ROM, strength, and transfers during her time in inpatient therapy. Patient still has limitations, and is being recommended for ongoing PT services upon her discharge.) Problem List - Problem List Physical Therapy Problem List: Detail (1. Decreased ROM bilaterally 2. Decreased strength bilaterally 3. Pain 4. Gait abnormalities 5. Decreased tolerance for stairs) Occupational Therapy Problem List: Detail (1. Decreased Ind with showering. 2. Decreased Ind with functional mobility needed for IADLs. 3. Decreased Ind with IADLs including meal prep.) Goals - Goals Physical Therapy Goals: 1. Patient will be independent and demonstrate correct form of all exercises in her HEP to help increase strength and ROM. (Goal Met). 2. Patient will be able to ambulate household distances independently with an AD to be able to get around her home to perform ADLs. (Goal Met). 3. Patient will be able to ascend and descend 4 stairs safely and with correct form to get in and out of her home. (Goal Met) Occupational Therapy Goals: 1. Pt will be Ind with showering and total body dressing. 2. Pt will be Ind with functional mobility and demonstrate improved endurance needed for safe IADLs. 3. Pt will be safe and Ind with light meal prep task using walker. Plan - Plan Physical Therapy Plan: Patient has met all inpatient therapy goals at this time. Patient is being recommended for ongoing therapy services to help patient further increase ROM and strength, and gait training. Occupational Therapy Plan: OT 2-4 times per week to address goals and problem list as above.
--- NOTE | 2019-03-26 14:58 | Physical Therapy Tx Note ---
Physical Therapy Tx Note - Treatment Note Tolerated: Good Total Time Spent With Patient: 40 Physical Therapy Tx Note: Detail (Patient stated that she had 8/10 pain in her knees during treatment today. When standing up from the recliner, patient said that she had a sharp pain in her L knee. Patient ambulated 100 feet over smooth surfaces with a front-wheeled walker independently. ROM and strength was reassessed, please refer to discharge for results. Therapeutic exercises were completed: hip flexion, hip abduction, hip adduction, SAQ, heel slides, ROM on exercise ball, hamstring sets, quad sets x10 bilaterally. SLR x5 bilaterally. Patient required minimal assistance to complete all 5 repetitions of SLR. Patient was left in the bathroom with her sister in the room. The nursing staff was notified of her position.) Physical Therapy Problem List: Detail (1. Decreased ROM bilaterally 2. Decreased strength bilaterally 3. Pain 4. Gait abnormalities 5. Decreased tolerance for stairs) Physical Therapy Goals: 1. Patient will be independent and demonstrate correct form of all exercises in her HEP to help increase strength and ROM. (Goal Met). 2. Patient will be able to ambulate household distances independently with an AD to be able to get around her home to perform ADLs. (Goal Met). 3. Patient will be able to ascend and descend 4 stairs safely and with correct form to get in and out of her home. (Goal Met) Physical Therapy Plan: Patient has met all inpatient therapy goals at this time. Patient is being recommended for ongoing therapy services to help patient further increase ROM and strength, and gait training.
[2019-03-26] MEDS: RIVAROXABAN 20 MG TABLET PO SCH (21:06)
[2019-03-26] MEDS: DULOXETINE HCL 30 MG CAPSULE.DR PO SCH (21:06)
[2019-03-27] MEDS: OXYCODONE HCL/APAP 5MG/325MG TABLET PO PRN ×2 (06:19→13:00)
[2019-03-27] MEDS: LISINOPRIL 5 MG TABLET PO SCH (10:50)
[2019-03-27] MEDS: CHOLECALCIFEROL 1,000 UNIT TABLET PO SCH (10:50)
[2019-03-27] MEDS: MULTIVITAMINS/MINERALS TABLET PO SCH (10:50)
[2019-03-27] MEDS: CARVEDILOL 12.5 MG TABLET PO SCH (10:50)
[2019-03-27] MEDS: CELECOXIB 100 MG CAPSULE PO SCH (10:50)
[2019-03-27] MEDS: SENNOSIDES/DOCUSATE SODIUM UD CAPSULE PO PRN (10:52)
[2019-03-27] MEDS: TRAMADOL HCL 50 MG TABLET PO PRN (10:52)
--- NOTE | 2019-03-27 13:35 | Physical Therapy Tx Note ---
Physical Therapy Tx Note - Treatment Note Tolerated: Good Total Time Spent With Patient: 20 Physical Therapy Tx Note: Detail (Pt sitting up in recliner upon arrival; assisted nrsg with shikha baez. Independent w/sit to stand to front wheeled walker, ambulated independently to bathroom, independent w/all toileting. Transported in wheelchair to front hospital entrance, VCs to pivot to seat of SUV and to scoot back to allow LE's to enter vehicle. Transfer pe rformed w/SBA. Pt's sister observed transfer and placed pt's walker in vehicle. Pt tolerated well.) Physical Therapy Problem List: Detail (1. Decreased ROM bilaterally 2. Decreased strength bilaterally 3. Pain 4. Gait abnormalities 5. Decreased tolerance for stairs) Physical Therapy Goals: 1. Patient will be independent and demonstrate correct form of all exercises in her HEP to help increase strength and ROM. (Goal Met). 2. Patient will be able to ambulate household distances independently with an AD to be able to get around her home to perform ADLs. (Goal Met). 3. Patient will be able to ascend and descend 4 stairs safely and with correct form to get in and out of her home. (Goal Met) Prognosis: Good Physical Therapy Plan: Patient is discharged from physical therapy at this time, having met all goals. It is anticipated that patient will begin outpatient therapy next week.
--- NOTE | 2019-03-28 07:40 | Rehab Discharge Summary ---
Patient Information - Patient Information Diagnosis: multiple rehab services due to s/p matthew TKAs Ordered Treatment: OT Evaluate and Treat Surgery: Yes (matthew TKA ) Date of Surgery: 03/17/19 History: Detail (Patient was admitted as a patient to a swing bed on 03/20/19 following B TKAs.) Past Medical/Surgical Hx: PAST MEDICAL/SURGICAL HISTORY Past Surgical History card. cath, pacemaker, [place], hyst, stress tests PMH - Respiratory Hx Respiratory Disorders Yes Hx Sleep Apnea Yes Hx of CPAP Yes PMH - Cardiovascular Hx Cardiovascular Disorders Yes Hx Abnormal EKG Yes Hx Cardiac Catheterization Yes Hx Chest Pain Yes Hx Heart Attack Yes Hx Hypertension Yes Hx Irregular Heartbeat Yes Hx Pacemaker/Defibrillator Yes PMH - Neuro Hx Neurological Disorders No Hx Seizures No PMH - Hx Genitourinary Disorders No PMH - Endocrine Hx Endocrine Disorders No PMH - Musculoskeletal Hx Musculoskeletal Disorders Yes Hx Arthritis Yes Comment: cervical herniated disc PMH - Psych Hx Psychiatric Problems Yes Hx Anxiety Yes PMH - Hematology/Oncology Hx Hematology/Oncology No Disorders Premorbid Status: Detail (Pt lives alone in a modular home with 4 steps and matthew railings at the entrance. She has a walk in shower with a shower seat and a standard height toilet with a riser. There are no grab bars in the shower or near the toilet. She has a straight cane that she uses when around her home as well as a tripod cane. She is Ind with all home mgmt, meal prep and laundry tasks.) Social History: Detail (Pt reports having supportive sisters. She stated that she used the straight cane prior to surgery around her home for ambulation. She did some driving and was able to walk some community distances prior to her surgery.) Precautions: [place], Fall Objective Data - Pain Pain Present: Yes (variable) - Mental Status Patient Orientation: Oriented x3 - Visual Perception Appears within normal limits for therapeutic activities - ROM Within normal limits (Matthew UE AROM WNL) - Strength/Tone Within normal limits (Matthew UE strength WNL) - Coordination Appears within normal limits for therapeutic activities - Bed Mobility Independent (Ind with supine to sit) - Transfers Independent (Ind with sit to stand from toilet, EOB, shower seat, wheelchair and recliner.) - Balance Balance Sitting: Good Balance Standing: Good - Sensation Intact - Gait Detail (Pt ambulating household distances with 2 wheeled walker Indly.) - ADL's/IADL's Detail (Pt able to demonstrate Ind with total body dressing, showering in sitting and standing, simulated kitchen activities using walker and grooming/h ygiene tasks.) Therapy Assessment - Therapy Assessment Detail (Pt is Ind with ADLs/IADLs using walker.) Problem List - Problem List Physical Therapy Problem List: Detail (1. Decreased ROM bilaterally 2. Decreased strength bilaterally 3. Pain 4. Gait abnormalities 5. Decreased tolerance for stairs) Occupational Therapy Problem List: Detail (1. Decreased Ind with showering. 2. Decreased Ind with functional mobility needed for IADLs. 3. Decreased Ind with IADLs including meal prep.) Goals - Goals Physical Therapy Goals: 1. Patient will be independent and demonstrate correct form of all exercises in her HEP to help increase strength and ROM. (Goal Met). 2. Patient will be able to ambulate household distances independently with an AD to be able to get around her home to perform ADLs. (Goal Met). 3. Patient will be able to ascend and descend 4 stairs safely and with correct form to get in and out of her home. (Goal Met) Occupational Therapy Goals: Goals Met: 1. Pt will be Ind with showering and total body dressing. 2. Pt will be Ind with functional mobility and demonstrate improved endurance needed for safe IADLs. 3. Pt will be safe and Ind with light meal prep task using walker. Prognosis - Prognosis Good Plan - Plan Physical Therapy Plan: Patient is discharged from physical therapy at this time, having met all goals. It is anticipated that patient will begin outpatient therapy next week. Occupational Therapy Plan: Pt discharged home with sister on 03/27/19.
== END 2019-03-27 13:10 | disposition home or self-care (01) | DRG 565 ==
LOC: MEDSURG 12:04
PROVIDERS: ADMIT Internal Medicine; ATTEND Internal Medicine
DX: Z96.653 Presence of artificial knee joint, bilateral (principal); I48.20 Chronic atrial fibrillation, unspecified; Z79.01 Long term (current) use of anticoagulants; I10 Essential (primary) hypertension; I25.2 Old myocardial infarction; M19.90 Unspecified osteoarthritis, unspecified site; G47.33 Obstructive sleep apnea (adult) (pediatric); I49.8 Other specified cardiac arrhythmias; F32.9 Major depressive disorder, single episode, unspecified; Z98.61 Coronary angioplasty status; Z95.0 Presence of cardiac pacemaker
CPT/HCPCS: 99306; 99316